=== PATIENT | male | born 1990 | race Caucasian/White ===

== ENCOUNTER 2021-11-13 00:15 | Emergency (ER) | payer OTHER ==
[2021-11-13 00:23] VITALS: BP 124/86; PULSE 85; RESP 19; TEMP 97.9
[2021-11-13] MEDS ORDERED: IBUPROFEN 600 MG TAB PO STA (01:07)
--- NOTE | 2021-11-13 01:31 | ED ---
General Adult HPI - General Chief complaint: Extremity Injury, Lower Stated complaint: Leg Pain Time Seen by Provider: 11/13/21 00:37 Source: patient, RN notes reviewed Mode of arrival: ambulatory - History of Present Illness Initial comments: 31-year-old male presents to the emergency department for evaluation of right lower leg pain. Patient states he has had an increase in physical activity over the past few days and is concerned about a pulse muscled. Patient also states he tripped and fell striking his santos with step. Complains of pain with vigorous movement and palpation of the calf. Tylenol yesterday with minimal improvement. Denies any additional areas of pain or injury; no shortness of breath or chest pain. - Related Data Previous Rx's Medication Instructions Recorded Ibuprofen [Motrin] 600 mg PO Q8HR PRN #20 tab 11/13/21 Allergies Allergy/AdvReac Type Severity Reaction Status Date / Time No Known Allergies Allergy Verified 11/13/21 00:24 Review of Systems ROS Statement: Those systems with pertinent positive or pertinent negative responses have been documented in the HPI. ROS Other: All systems not noted in ROS Statement are negative. Past Medical History Past Medical History: No Reported History History of Any Multi-Drug Resistant Organisms: None Reported Past Surgical History: No Surgical Hx Reported Past Psychological History: No Psychological Hx Reported Smoking Status: Current some day smoker Past Alcohol Use History: None Reported Past Drug Use History: Marijuana General Exam Limitations: no limitations (Well-developed, well-nourished male in no acute distress. Initial temperature 97.9, pulse 85, respirations 19, blood pressure 124/86, pulse ox 97% on room air.) General appearance: alert, in no apparent distress Respiratory exam: Present: normal lung sounds bilaterally. Absent: respiratory distress, wheezes, rales, rhonchi, stridor Cardiovascular Exam: Present: regular rate, normal rhythm, normal heart sounds. Absent: systolic murmur, diastolic murmur, rubs, gallop, clicks Right Upper Leg exam: Present: normal inspection, full ROM. Absent: tenderness, swelling Knee exam: Present: normal inspection, full ROM. Absent: tenderness, swelling, erythema Lower Leg exam: Present: normal inspection, full ROM (Able to ambulate without difficulty, though does complain that he feels tightness in the right calf that he associates with a pulled muscle), tenderness (Tenderness upon palpation of posterior aspect left lower leg). Absent: swelling, ecchymosis, deformity, erythema Ankle exam: Present: normal inspection, full ROM. Absent: tenderness, swelling Foot/Toe exam: Present: normal inspection, full ROM. Absent: tenderness, swelling Neurovascular tendon exam: Present: no vascular compromise Neurological exam: Present: alert, oriented X3, CN II-XII intact Psychiatric exam: Present: normal affect, normal mood Skin exam: Present: warm, dry, intact, normal color. Absent: rash Course Vital Signs 11/13/21 00:18 Temperature 97.9 F Pulse Rate 85 Respiratory 19 Rate Blood Pressure 124/86 O2 Sat by Pulse 97 Oximetry Medical Decision Making - Medical Decision Making 31-year-old male with no significant past medical history presents to the emergency department for evaluation of right lower extremity pain. Upon exam, patient is well-appearing and in no acute distress. Localizes pain to the posterior aspect of the right lower extremity which worsens with palpation and movement. No erythema, edema, pulse deficit noted. Bilateral lower extremities are symmetrical. Patient does not have any risk factors for DVT. He also describes injury to the right proximal tibia which occurred when patient was struck his leg on a wooden step. X-ray of the right tibia and fibula was obtained and is negative. He was given Motrin for discomfort and will be discharged home with a prescription. Instructed to follow-up with his PCP for a recheck. Return parameters were discussed in detail. Patient verbalizes un derstanding and agrees with this plan. Disposition Clinical Impression: Pain of right calf Disposition: HOME SELF-CARE Condition: Stable Instructions (If sedation given, give patient instructions): Leg Pain (ED) Additional Instructions: Alternate heat and ice to affected area. May take Motrin for pain. Gentle stretching and range of motion exercises. Follow up with your PCP for a recheck if pain persists. Return to the Emergency Department with any new, worsening, or concerning symptoms. Prescriptions: Ibuprofen [Motrin] 600 mg PO Q8HR PRN #20 tab PRN Reason: Pain Is patient prescribed a controlled substance at d/c from ED?: No Referrals: None,Stated [Primary Care Provider] - 1-2 days Time of Disposition: 01:57
--- NOTE | 2021-11-13 01:36 | XR ---
EXAMINATION TYPE: XR tibia fibula RT DATE OF EXAM: 11/13/2021 COMPARISON: NONE HISTORY: Fall. Pain TECHNIQUE: 4 views FINDINGS: I see no fracture nor dislocation. Joint spaces are normal. Knee joint and ankle joint appe ar intact. IMPRESSION: Negative right tibia and fibula exam.
== END 2021-11-13 02:08 | disposition home or self-care (01) ==
LOC: EC 00:15
DX: M79.661 Pain in right lower leg (principal); F17.200 Nicotine dependence, unspecified, uncomplicated; W01.0XXA Fall on same level from slipping, tripping and stumbling without subsequent striking against object, initial encounter
CPT/HCPCS: 99283